=== PATIENT | female | born 1940 | race Caucasian/White ===

== ENCOUNTER 2018-01-15 05:54 | Emergency (ER) | payer MEDICARE, OTHER ==
[~2018-01-15] VITALS: Ht 162.6 cm; Wt 67.7 kg
[~2018-01-15 05:54] MED LIST: ASPI-845 PO; BIOIDENTICAL HORM SQ; CALC-793 PO; DOCU-28 PO; MIRT15TA PO; MULT1TAB74 PO; NOR5T PO; OMEP20CA10 PO; POLY17PO10 PO; SOLI10TA2 PO; THY60T PO; VITA-268 PO; VITA-319 PO
[2018-01-15] MEDS ORDERED: normal saline 1000ml 1,000 ML IV ONE (06:25)
[2018-01-15] MEDS ORDERED: dicyclomine 10 MG capsule PO ONE (06:25)
[2018-01-15] MEDS ORDERED: morphine 4 MG/ML inj SYRINge IV ONE (06:25)
[2018-01-15] MEDS ORDERED: ondansetron/PF 4mg/2ml inj IV ONE (06:25)
[2018-01-15 06:37] LABS: BASOPHILS % (AUTO) 0.2 % (0-1); EOSINOPHILS # (AUTO) 0.1 X10'3 (0-0.9); HEMATOCRIT 42.1 % (35.0-45.0); HEMOGLOBIN 13.9 g/dl (12.0-16.0); LYMPHOCYTES # (AUTO) 1.1 X10'3 (1.1-4.8); LYMPHOCYTES % (AUTO) 10.5 % (21-51); MEAN CORPUSCULAR HEMOGLOBIN 29.2 PG (27.0-31.0); MEAN CORPUSCULAR VOLUME 88.6 FL (78-98); MEAN PLATELET VOLUME 8.3 FL (7.4-10.4); MONOCYTES # (AUTO) 0.5 X10'3 (0-0.9); MONOCYTES % (AUTO) 4.9 % (2-12); NEUTROPHILS # (AUTO) 9.1 X10'3 (1.8-7.7); NEUTROPHILS % (AUTO) 83.4 % (42-75); PLATELET COUNT 284 X10'3 (140-440); RED BLOOD COUNT 4.75 X10'6 (4.20-5.60); RED CELL DISTRIBUTION WIDTH 12.7 % (11.5-14.5); WHITE BLOOD COUNT 10.9 X10'3 (4.5-11.0)
[2018-01-15 06:51] LABS: ALANINE AMINOTRANSFERASE 13 U/L (12-78); ALBUMIN 3.6 G/DL (3.4-5.0); ALBUMIN/GLOBULIN RATIO 0.8 (1.1-1.5); ALKALINE PHOSPHATASE 101 IU/L (46-116); ANION GAP 12 (8-16); ASPARTATE AMINO TRANSFERASE 14 U/L (10-37); BILIRUBIN,TOTAL 0.4 MG/DL (0.1-1.0); BLOOD UREA NITROGEN 10 MG/DL (7-18); BUN/CREATININE RATIO 11.4 (6.6-38.0); CALCIUM 9.1 MG/DL (8.5-10.1); CHLORIDE 98 MMOL/L (99-107); CREATININE 0.88 MG/DL (0.40-0.90); GLUCOSE 124 MG/DL (70-104); LACTATE DEHYDROGENASE 133 U/L (81-234); POTASSIUM 3.7 MMOL/L (3.5-5.1); SODIUM 134 MMOL/L (135-145); TOTAL CARBON DIOXIDE 23.6 MMOL/L (24-32); TOTAL PROTEIN 8.1 G/DL (6.4-8.2); eGFR 62 ML/MIN
[2018-01-15] MEDS ORDERED: iohexol 300mg/ml 100ml inj. ONE (07:08)
[2018-01-15 09:02] LABS: CLARITY,URINE CLEAR (Clear); COLOR,URINE STRAW (Yellow); GLUCOSE, URINE NEGATIVE (Neg); KETONES,URINE NEGATIVE (Neg); LEUKOCYTE ESTERASE ,URINE NEGATIVE (Neg); NITRITES, URINE NEGATIVE (Neg); OCCULT BLOOD,URINE TRACE-INTACT (Neg); PH,URINE 5.5 (4.8-8.0); PROTEIN,URINE NEGATIVE (Neg); UROBILINOGEN,URINE 0.2 E.U/dL (0.2-1.0)
[2018-01-15 09:12] LABS: UA COLLECTION TYPE CLN CATCH MIDSTREAM
[2018-01-15 09:13] LABS: BACTERIA,URINE FEW /HPF (Neg); RBC,URINE 0-2 /HPF (0-2); SQUAMOUS EPITHELIAL CELL,UR FEW /LPF (FEW); WBC,URINE 0-4 /HPF (0-4)
[2018-01-15] MEDS ORDERED: LACT10SO PO (09:51)
[2018-01-15] MEDS ORDERED: BISA-155 PO (09:51)
[2018-01-15 10:08] VITALS: BP 138/106
== END 2018-01-15 10:10 | disposition home or self-care (01) ==
LOC: ER 05:56
DX: K59.00 Constipation, unspecified (principal); K57.92 Diverticulitis of intestine, part unspecified, without perforation or abscess without bleeding; I10 Essential (primary) hypertension; E03.9 Hypothyroidism, unspecified; Z86.69 Personal history of other diseases of the nervous system and sense organs; Z90.49 Acquired absence of other specified parts of digestive tract; Z90.710 Acquired absence of both cervix and uterus; Z98.890 Other specified postprocedural states; Z88.0 Allergy status to penicillin; Z79.82 Long term (current) use of aspirin; Z79.899 Other long term (current) drug therapy
CPT/HCPCS: 36415; 74177; 80053; 81001; 83605; 83615; 85025; 85610; 96374; 96375; 99284; J2270; J2405; J7030; Q9967

== ENCOUNTER 2018-04-19 12:56 | Inpatient (IN) | payer MEDICARE, OTHER | END 2018-04-22 17:20 | disposition home or self-care (01) | LOC: ER 12:56 → ED HOLD 15:28 → SUR 3N 16:53 | DX: K57.92 Diverticulitis of intestine, part unspecified, without perforation or abscess without bleeding (principal); K52.9 Noninfective gastroenteritis and colitis, unspecified; I10 Essential (primary) hypertension; K59.00 Constipation, unspecified; K21.9 Gastro-esophageal reflux disease without esophagitis ==

== ENCOUNTER 2019-06-01 22:52 | Emergency (ER) | payer MEDICARE ==
[~2019-06-01] VITALS: Ht 162.6 cm; Wt 70.9 kg
[~2019-06-01 22:52] MED LIST changes: -ASPI-845 PO; -BIOIDENTICAL HORM SQ; +CLON-528 PO; -DOCU-28 PO; +LEVO500T89 PO; +METR500T PO; -OMEP20CA10 PO; +OMEP40CA13 PO; -POLY17PO10 PO; +PROG100C11 PO; -SOLI10TA2 PO; -THY60T PO; -VITA-319 PO
--- NOTE | 2019-06-01 23:43 | NUR ---
CLAUDY STEPHENSON CONTACT # [phone] FOR RIDE HOME
[2019-06-01] MEDS ORDERED: HYDROcodone/acetaminophen 5mg/325mg tablet PO ONE (23:50)
--- NOTE | 2019-06-02 00:06 | NUR ---
IFTIKHAR TORCH SOLDERER AT BEDSIDE APPLYING SPLINT PER DR. BARNEY ORDERS
[2019-06-02 00:45] VITALS: BP 161/87
[2019-06-02] MEDS ORDERED: HYDR-3965 PO (01:09)
== END 2019-06-02 01:40 | disposition home or self-care (01) ==
LOC: ER 22:53
DX: S52.201A Unspecified fracture of shaft of right ulna, initial encounter for closed fracture (principal); S00.83XA Contusion of other part of head, initial encounter; I10 Essential (primary) hypertension; E03.9 Hypothyroidism, unspecified; F41.9 Anxiety disorder, unspecified; F32.9 Major depressive disorder, single episode, unspecified; F41.0 Panic disorder [episodic paroxysmal anxiety]; Z90.49 Acquired absence of other specified parts of digestive tract; Z90.710 Acquired absence of both cervix and uterus; Z86.69 Personal history of other diseases of the nervous system and sense organs; Z98.890 Other specified postprocedural states; Z88.0 Allergy status to penicillin; Z79.899 Other long term (current) drug therapy; W18.39XA Other fall on same level, initial encounter; Y93.89 Activity, other specified; Y92.89 Other specified places as the place of occurrence of the external cause; Y99.8 Other external cause status
CPT/HCPCS: 29125; 70450; 73090; 99284

== ENCOUNTER 2022-06-21 05:02 | Emergency (ER) | payer MEDICARE ==
[~2022-06-21] VITALS: Ht 162.6 cm; Wt 63.6 kg
[~2022-06-21 05:02] MED LIST changes: +ASPI-1071 PO; +ATOR20TA66 PO; -LEVO500T89 PO; +METO-395 PO; -METR500T PO; +MIRT-116 PO; -MIRT15TA PO; +MULT-620 PO; -MULT1TAB74 PO; -OMEP40CA13 PO; +OMEP40CA21 PO
[2022-06-21] MEDS ORDERED: fentaNYL/PF 50MCG/1 ML 2ML syringe IV ONE (05:20)
[2022-06-21] MEDS ORDERED: ondansetron/PF 4mg/2ml inj IV ONE (05:20)
[2022-06-21] MEDS ORDERED: normal saline 1000ml 1,000 ML IV ONE (05:30)
[2022-06-21 06:02] LABS: BASOPHILS # (AUTO) 0.2 X10'3 (0-0.2); BASOPHILS % (AUTO) 1.6 % (0-1); EOSINOPHILS # (AUTO) 0.1 X10'3 (0-0.9); HEMATOCRIT 43.2 % (35.0-45.0); HEMOGLOBIN 14.3 g/dl (12.0-16.0); LYMPHOCYTES # (AUTO) 0.5 X10'3 (1.1-4.8); LYMPHOCYTES % (AUTO) 4.7 % (21-51); MEAN CORPUSCULAR HGB CONC 33.2 g/dL (33.0-36.5); MEAN CORPUSCULAR VOLUME 90.4 FL (78-98); MEAN PLATELET VOLUME 8.8 FL (7.4-10.4); MONOCYTES # (AUTO) 0.5 X10'3 (0-0.9); MONOCYTES % (AUTO) 4.6 % (2-12); NEUTROPHILS % (AUTO) 88.1 % (42-75); PLATELET COUNT 201 X10'3 (140-440); RED BLOOD COUNT 4.77 X10'6 (4.20-5.60); RED CELL DISTRIBUTION WIDTH 13.2 % (11.5-14.5); WHITE BLOOD COUNT 10.2 X10'3 (4.5-11.0)
[2022-06-21 06:03] LABS: ALANINE AMINOTRANSFERASE 33 U/L (12-78); ALBUMIN 3.3 G/DL (3.4-5.0); ALBUMIN/GLOBULIN RATIO 0.9 (1.1-1.5); ALKALINE PHOSPHATASE 102 IU/L (46-116); ANION GAP 9 (8-16); ASPARTATE AMINO TRANSFERASE 69 U/L (10-37); BILIRUBIN,TOTAL 0.7 MG/DL (0.1-1.0); BLOOD UREA NITROGEN 20 MG/DL (7-18); CALCIUM 8.2 MG/DL (8.5-10.1); CHLORIDE 99 MMOL/L (99-107); GLUCOSE 122 MG/DL (70-104); SODIUM 133 MMOL/L (135-145); TOTAL CARBON DIOXIDE 25.5 MMOL/L (24-32); TOTAL PROTEIN 6.8 G/DL (6.4-8.2); eGFR 69 ML/MIN
[2022-06-21 06:06] LABS: LIPASE 145 U/L (73-393)
[2022-06-21 06:35] VITALS: BP 119/69
[2022-06-21] MEDS ORDERED: ACET650T58 PO (08:29)
[2022-06-21] MEDS ORDERED: POLY119P2 PO (08:29)
== END 2022-06-21 09:05 | disposition home or self-care (01) ==
LOC: ER 05:02
DX: R10.13 Epigastric pain (principal); R50.9 Fever, unspecified; I10 Essential (primary) hypertension; E03.9 Hypothyroidism, unspecified; F41.9 Anxiety disorder, unspecified; F32.9 Major depressive disorder, single episode, unspecified; Z87.81 Personal history of (healed) traumatic fracture; Z90.49 Acquired absence of other specified parts of digestive tract; Z79.899 Other long term (current) drug therapy; Z88.0 Allergy status to penicillin; Z90.710 Acquired absence of both cervix and uterus; Z86.73 Personal history of transient ischemic attack (TIA), and cerebral infarction without residual deficits; Z79.82 Long term (current) use of aspirin
CPT/HCPCS: 36415; 71045; 74176; 80053; 83605; 83690; 84145; 84484; 85025; 93005; 96361; 96374; 96375; 99285; J2405; J3010; J7030